=== PATIENT | female | born 1940 | race Caucasian/White ===

== ENCOUNTER 2022-03-13 09:50 | Outpatient (CLI) | payer MEDICARE, OTHER | END 2022-03-13 09:51 | disposition home or self-care (01) | LOC: CSHMAMMO 09:50 | PROVIDERS: ATTEND Nurse Practitioner Family | DX: Z12.31 Encounter for screening mammogram for malignant neoplasm of breast (principal); N64.89 Other specified disorders of breast; Z85.820 Personal history of malignant melanoma of skin | CPT/HCPCS: 77063; 77067 ==

== ENCOUNTER 2022-03-28 08:58 | Outpatient (CLI) | payer OTHER | END 2022-03-28 08:59 | disposition home or self-care (01) | LOC: CSHMAMMO 08:58 | PROVIDERS: ATTEND Nurse Practitioner Family | DX: N64.89 Other specified disorders of breast (principal); N60.02 Solitary cyst of left breast | CPT/HCPCS: 76642; 77065; G0279 ==

== ENCOUNTER 2022-09-29 09:02 | Outpatient (CLI) | payer MEDICARE | END 2022-09-29 09:03 | disposition home or self-care (01) | LOC: CSHMAMMO 09:02 | PROVIDERS: ATTEND Nurse Practitioner Family | DX: N63.14 Unspecified lump in the right breast, lower inner quadrant (principal); R92.8 Other abnormal and inconclusive findings on diagnostic imaging of breast | CPT/HCPCS: 76642; 77065; G0279 ==

== ENCOUNTER 2023-05-01 13:40 | Outpatient (CLI) | payer MEDICARE | END 2023-05-01 13:41 | disposition home or self-care (01) | LOC: CSHMAMMO 13:40 | PROVIDERS: ATTEND Nurse Practitioner Family | DX: R92.8 Other abnormal and inconclusive findings on diagnostic imaging of breast (principal); N64.89 Other specified disorders of breast; N60.02 Solitary cyst of left breast | CPT/HCPCS: 76642; 77066; G0279 ==

== ENCOUNTER 2023-11-02 08:35 | Outpatient (CLI) | payer MEDICARE | END 2023-11-02 08:36 | disposition home or self-care (01) | LOC: CSHMAMMO 08:35 | PROVIDERS: ATTEND Nurse Practitioner Family | DX: R92.8 Other abnormal and inconclusive findings on diagnostic imaging of breast (principal) | CPT/HCPCS: 77065; G0279 ==